=== PATIENT | female | born 1995 | race Two or more races ===

== ENCOUNTER 2018-12-19 09:15 | Emergency (ER) | payer OTHER ==
[~2018-12-19] VITALS: Ht 154.9 cm; Wt 59.0 kg
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
--- NOTE | 2018-12-19 09:48 | NUR ---
DR MENDOZA AT BEDSIDE
--- NOTE | 2018-12-19 10:01 | NUR ---
PT SIGNED WAIVER, LMP 11/25/18
--- NOTE | 2018-12-19 10:04 | NUR ---
JD EDWARDS CONSULTANT AT BEDSIDE
--- NOTE | 2018-12-19 10:08 | NUR ---
PT WHEELED OUT VIA [facility] FOR CT PELVIS
--- NOTE | 2018-12-19 10:08 | NUR ---
Barbra mary in ED - 12/19/18 at 1205 by PAMELA PT WHEELED OUT VIA BRENNA FOR CT PELVIS
[2018-12-19] MEDS ORDERED: IBUPROFEN 600 MG TABLET PO ONE ×2 (10:17→10:30)
[2018-12-19 11:21] LABS: BASOPHILS # (AUTO) 0.1 /CMM (0.0-0.2); BASOPHILS % (AUTO) 0.8 % (0.0-2.0); EOSINOPHILS % (AUTO) 1.5 % (0.0-6.0); HEMATOCRIT 41 % (33-45); HEMOGLOBIN 14.1 g/dL (11.5-14.8); LYMPHOCYTES # (AUTO) 0.4 /CMM (0.8-4.8); LYMPHOCYTES % (AUTO) 4.5 % (20.0-44.0); MEAN CORPUSCULAR HGB CONC 34 g/dl (31.0-36.0); MEAN CORPUSCULAR VOLUME 91 fL (82-100); MONOCYTES # (AUTO) 0.4 /CMM (0.1-1.30); MONOCYTES % (AUTO) 5.3 % (2.0-12.0); NEUTROPHILS # (AUTO) 7.4 /CMM (1.8-8.9); NEUTROPHILS % (AUTO) 87.9 % (43.0-81.0); PLATELET COUNT (AUTO) 218 /CMM (150-450); RED BLOOD CELL COUNT(AUTO) 4.54 MIL/uL (4.0-5.2); WHITE BLOOD COUNT (AUTO) 8.4 K/uL (4.3-11.0)
[2018-12-19 11:29] LABS: CREATININE 0.5 mg/dL (0.6-1.3); POTASSIUM 3.9 mmol/L (3.5-5.1)
[2018-12-19 11:34] LABS: ALBUMIN 3.7 g/dL (3.4-5.0); BILIRUBIN,TOTAL 1.5 mg/dL (0.2-1.0); CALCIUM, SERUM 8.6 mg/dL (8.5-10.1); TOTAL PROTEIN, SERUM 7.5 g/dL (6.4-8.2)
--- NOTE | 2018-12-19 11:41 | NUR ---
Barbra mary in [facility] - 12/19/18 at 1205 by PAMELA WHEELED OUT VIA BRENNA FOR CT ABDOMEN PELVIS W CONTRAST
[2018-12-19] MEDS ORDERED: IOHEXOL-300 100 ML VIAL IV ONE (12:02)
--- NOTE | 2018-12-19 12:05 | NUR ---
WHEELED OUT VIA GURNEY FOR CT ABDOMEN PELVIS W CONTRAST
--- NOTE | 2018-12-19 12:43 | NUR ---
CALLED ELKIN LAIRD
--- NOTE | 2018-12-19 13:02 | NUR ---
CALLED BUDDY GRANGER
[2018-12-19 13:07] LABS: LYMPHOCYTES % (MANUAL) 3 % (16-48); MONOCYTES % (MANUAL) 6 % (0-11.0); NEUTROPHILS % (MANUAL) 91 (42-76)
[2018-12-19 13:55] VITALS: BP 126/78
[2018-12-19] MEDS ORDERED: TDAP [DIPH/PERTUSSIS/TET] 0.5 ML VIAL IM ONE ×2 (13:56→14:00)
[2018-12-19 14:19] LABS: APPEARANCE,URINE Clear (CLEAR); BILIRUBIN,URINE SMALL (NEGATIVE); BLOOD, URINE Negative Ery/uL (NEGATIVE); KETONES,URINE >=160 (NEGATIVE); LEUKOCYTE ESTERASE ,URINE Negative (NEGATIVE); NITRITE, URINE Negative (NEGATIVE); PH,URINE 6.5 (5.0-8.0); PROTEIN,URINE 30 mg/dl (NEGATIVE); UGLUCOSE Negative (NEGATIVE); UROBILINOGEN,URINE 0.2 EU/dL (0.2)
[2018-12-19 14:21] LABS: COLOR,URINE Dark Yellow (YELLOW)
--- NOTE | 2018-12-19 14:21 | NUR ---
IV removed. Catheter intact and site benign. Pressure and 4x4 applied to site. No bleeding noted.Patient discharged in custody [place] [id number] in stable condition. Written and verbal after care instructions given. Patient verbalizes understanding of instruction.
[2018-12-19 14:27] LABS: BACTERIA,URINE Few /HPF (None Seen); MUCUS,URINE Few /LPF (None Seen); RBC,URINE 0-2 /HPF (0-2); SQUAMOUS EPITHELIAL CELL,UR Few /HPF (None Seen); WBC,URINE 0-2 /HPF (0-3)
== END 2018-12-19 14:21 ==
LOC: ER 09:17
DX: S32.19XA Other fracture of sacrum, initial encounter for closed fracture (principal); S32.592A Other specified fracture of left pubis, initial encounter for closed fracture; S82.832A Other fracture of upper and lower end of left fibula, initial encounter for closed fracture; S10.81XA Abrasion of other specified part of neck, initial encounter; S00.81XA Abrasion of other part of head, initial encounter; W18.39XA Other fall on same level, initial encounter; Y93.89 Activity, other specified; Y92.89 Other specified places as the place of occurrence of the external cause; Y99.8 Other external cause status
CPT/HCPCS: 29505; 36415; 72192; 73590; 73610; 74177; 80053; 81001; 84703; 85025; 85610; 85730; 90471; 90715; 99284; J7030; Q9967; 81000-TC

== ENCOUNTER 2018-12-20 21:35 | Emergency (ER) | payer MEDICAID, OTHER ==
[~2018-12-20] VITALS: Ht 157.5 cm; Wt 52.2 kg
[2018-12-20 21:52] VITALS: BP 117/61
[2018-12-20] MEDS ORDERED: HYDROCODONE/APAP 5/325MG 1 EACH TABLET PO ONE (22:00)
[2018-12-20] MEDS ORDERED: IBUPROFEN 400 MG TABLET PO ONE (22:00)
[2018-12-20] MEDS ORDERED: HYDROCODONE/APAP 5/325MG 1 EACH TABLET ONE (22:14)
[2018-12-20] MEDS ORDERED: IBUPROFEN 400 MG TABLET ONE (22:15)
== END 2018-12-20 22:25 | disposition home or self-care (01) ==
LOC: ER 21:43
DX: S32.10XD Unspecified fracture of sacrum, subsequent encounter for fracture with routine healing (principal); S82.62XD Displaced fracture of lateral malleolus of left fibula, subsequent encounter for closed fracture with routine healing; S32.592D Other specified fracture of left pubis, subsequent encounter for fracture with routine healing; W18.39XD Other fall on same level, subsequent encounter

== ENCOUNTER 2018-12-26 23:56 | Emergency (ER) | payer MEDICAID ==
--- NOTE | 2018-12-26 23:59 | NUR ---
CALLED PT TO BE TRIAGED, NO ANSWER
--- NOTE | 2018-12-27 00:05 | NUR ---
CALLED PT TO BE TRIAGED NO ANSWER
--- NOTE | 2018-12-27 01:24 | NUR ---
CALLED PT TO BE TRIAGED, NO ANSWER
== END 2018-12-27 01:25 | disposition home or self-care (01) ==
LOC: ER 23:59
DX: Z53.21 Procedure and treatment not carried out due to patient leaving prior to being seen by health care provider (principal)

== ENCOUNTER 2018-12-27 15:04 | Emergency (ER) | payer MEDICAID ==
[~2018-12-27] VITALS: Ht 154.9 cm; Wt 52.2 kg
--- NOTE | 2018-12-27 15:25 | NUR ---
CAME IN FOR L ANKLE AND SACRAL PAIN SINCE 12/19/18. "MY STIRRUP GOT WET AND I WOULD LIKE TO HAVE IT CHANGED". TO ER BED 10, AOx4 , HOOKED TO MONITOR, PROVIDED W WARM BLANKET, AWAITING MD MANCINI.
--- NOTE | 2018-12-27 15:54 | NUR ---
DR HANNA AT BEDSIDE
--- NOTE | 2018-12-27 16:22 | NUR ---
TECH AT BEDSIDE TO PUT LLE STIRRUP 4 INCH.
[2018-12-27] MEDS ORDERED: IBUPROFEN 600 MG TABLET PO ONE ×2 (16:43→17:00)
--- NOTE | 2018-12-27 16:47 | NUR ---
Patient discharged to home in stable condition. Written and verbal after care instructions given. Patient verbalizes understanding of instruction.
[2018-12-27 16:48] VITALS: BP 114/66
== END 2018-12-27 16:49 | disposition home or self-care (01) ==
LOC: ER 15:08
DX: S82.832A Other fracture of upper and lower end of left fibula, initial encounter for closed fracture (principal); R60.0 Localized edema; Z60.2 Problems related to living alone; W13.8XXA Fall from, out of or through other building or structure, initial encounter; Y93.89 Activity, other specified; Y92.89 Other specified places as the place of occurrence of the external cause; Y99.8 Other external cause status

== ENCOUNTER 2019-01-04 23:19 | Emergency (ER) | payer MEDICAID ==
[~2019-01-04] VITALS: Ht 157.5 cm; Wt 52.2 kg
[2019-01-04 23:34] VITALS: BP 136/69
--- NOTE | 2019-01-04 23:46 | NUR ---
PATIENT STATED GOING TO GO SEE PMD, DID NOT WANT TO WAIT.
== END 2019-01-04 23:47 | disposition left against medical advice (07) ==
LOC: ER 23:28
DX: Z53.21 Procedure and treatment not carried out due to patient leaving prior to being seen by health care provider (principal)

== ENCOUNTER 2019-01-18 23:55 | Emergency (ER) | payer MEDICAID ==
[~2019-01-18] VITALS: Ht 154.9 cm; Wt 52.2 kg
--- NOTE | 2019-01-19 00:08 | NUR ---
RN INITAL NOTES"MY PELVIS HURTS" S/P FALL 1 MONTH AGO, PTS VITALS STABLE ALERT AND ORIENTED, AMBULATORY
[2019-01-19] MEDS ORDERED: KETOROLAC TROMETHAMINE INJ 60 MG/2 ML VIAL IM ONE ×2 (00:45→01:00)
[2019-01-19 01:15] VITALS: BP 111/77
== END 2019-01-19 01:16 | disposition home or self-care (01) ==
LOC: ER 01-19 00:01
DX: G89.29 Other chronic pain (principal); R10.2 Pelvic and perineal pain; Z60.2 Problems related to living alone
CPT/HCPCS: 96372; 99283; J1885

== ENCOUNTER 2021-01-17 19:07 | Emergency (ER) | payer MEDICAID ==
[~2021-01-17] VITALS: Ht 157.5 cm; Wt 59.0 kg
[2021-01-17] MEDS ORDERED: ONDANSETRON HCL/PF 4 MG/2 ML VIAL IV ONE (19:30)
[2021-01-17] MEDS ORDERED: IV NS 0.9% 1,000 ML IV ONE (19:30)
[2021-01-17] MEDS ORDERED: ONDANSETRON HCL/PF 4 MG/2 ML VIAL ONE (20:31)
[2021-01-17 21:37] LABS: BASOPHILS % (AUTO) 0.5 % (0.0-2.0); EOSINOPHILS % (AUTO) 1.4 % (0.0-6.0); HEMATOCRIT 36 % (33-45); HEMOGLOBIN 12.1 g/dL (11.5-14.8); LYMPHOCYTES # (AUTO) 1.6 K/uL (0.8-4.8); LYMPHOCYTES % (AUTO) 26.2 % (20.0-44.0); MEAN CORPUSCULAR HGB CONC 34 g/dl (31.0-36.0); MEAN CORPUSCULAR VOLUME 91 fL (82-100); MONOCYTES # (AUTO) 0.6 K/uL (0.1-1.30); MONOCYTES % (AUTO) 9.2 % (2.0-12.0); NEUTROPHILS # (AUTO) 3.9 K/uL (1.8-8.9); NEUTROPHILS % (AUTO) 62.7 % (43.0-81.0); PLATELET COUNT (AUTO) 279 K/uL (150-450); RED BLOOD CELL COUNT(AUTO) 3.97 MIL/uL (4.0-5.2); WHITE BLOOD COUNT (AUTO) 6.2 K/uL (4.3-11.0)
[2021-01-17 21:37] LABS: BILIRUBIN,URINE NEGATIVE (NEGATIVE); COLOR,URINE YELLOW (YELLOW); LEUKOCYTE ESTERASE ,URINE NEGATIVE (NEGATIVE); NITRITE, URINE NEGATIVE (NEGATIVE); PROTEIN,URINE TRACE mg/dl (NEGATIVE); UGLUCOSE NEGATIVE (NEGATIVE); UROBILINOGEN,URINE 0.2 EU/dL (0.2)
[2021-01-17 21:49] LABS: CALCIUM, SERUM 8.3 mg/dL (8.5-10.1); CARBON DIOXIDE 29 mmol/L (21-32); CHLORIDE 107 mmol/L (98-107); CREATININE 0.8 mg/dL (0.6-1.3); GLUCOSE 96 mg/dL (74-106); POTASSIUM 3.7 mmol/L (3.5-5.1); SODIUM SERUM 145 mmol/L (136-145); UREA NITROGEN, BLOOD 13 mg/dL (7-18)
[2021-01-17 21:53] LABS: BACTERIA,URINE None seen /HPF (None Seen); MUCUS,URINE Many /LPF (None Seen); RBC,URINE 0-2 /HPF (0-2); WBC,URINE 0-2 /HPF (0-3)
[2021-01-17 21:53] LABS: ALANINE AMINOTRANSFERASE 33 U/L (12-78); ALBUMIN 3.6 g/dL (3.4-5.0); ALKALINE PHOSPHATASE 73 U/L (46-116); ASPARTATE AMINOTRANSFERASE 20 U/L (15-37); BILIRUBIN,DIRECT 0.3 mg/dL (0.0-0.2); BILIRUBIN,TOTAL 1.1 mg/dL (0.2-1.0); TOTAL PROTEIN, SERUM 6.7 g/dL (6.4-8.2)
[2021-01-17 21:54] LABS: ACETAMINOPHEN 0 ug/ml (10-30); ALCOHOL, BLOOD < 3 mg/dL (0-0)
[2021-01-18 05:37] VITALS: BP 119/69
== END 2021-01-18 05:37 | disposition home or self-care (01) ==
LOC: ER 19:08
DX: T42.4X1A Poisoning by benzodiazepines, accidental (unintentional), initial encounter (principal); R40.0 Somnolence; R53.83 Other fatigue; Y92.89 Other specified places as the place of occurrence of the external cause; F19.10 Other psychoactive substance abuse, uncomplicated
CPT/HCPCS: 36415; 80048; 80076; 80143; 80307; 80320; 81001; 85025; 87426; 96361; 96374; 99285; C9803; J2405; J7030; G0480